=== PATIENT | female | born 1975 | race Caucasian/White ===

== ENCOUNTER 2016-04-07 17:57 | Emergency (ER) | payer OTHER ==
[~2016-04-07] VITALS: Ht 172.7 cm; Wt 106.8 kg
[~2016-04-07 17:57] MED LIST: BIRTH CONTROL; LAMO200T PO; METF1000 PO; NPR500T PO; PREG150C PO; VENL150C4 PO; [UNRECOGNIZED DRUG - CODE] PO
[2016-04-07 18:31] VITALS: BP 121/80; PULSE 68; RESP 18; O2SAT 97
[2016-04-07 19:36] LABS: BASOPHILS % (AUTO) 0.5 % (0-3); EOSINOPHILS % (AUTO) 2.3 % (0-5); MONOCYTES % (AUTO) 8.4 % (4-12); Mean Corpuscular Hemoglobin 29.1 pg (27.0-35.0); NEUTROPHILS % (AUTO) 48.8 % (40-74); Platelet Count 309 bil/L (150-400)
[2016-04-07 21:11] LABS: APPEARANCE,URINE HAZY (CLEAR,HAZY); COLOR,URINE YELLOW (YELLOW)
[2016-04-07 21:12] LABS: OCCULT BLOOD,URINE NEGATIVE (NEGATIVE); UROBILINOGEN,URINE NORMAL (NORMAL)
--- NOTE | 2016-04-07 21:15 | ED.REPORT ---
HPI-Abd Pain F 40 and Over Date of Service Apr 07, 2016 ED Provider: Kameron Sargent MD Patient is a 40 year old female with history of PCOS, diabetes mellitus, fibromyalgia, and hypothyroidism who presents to the ED with lower abdominal pain for the past 2 days. Patient states that the pain began in her RLQ and felt similar to what she experiences due to her PCOS. However the pain then spread to her LLQ as well, with suprapubic pain that radiated to her back. Patient reports severe cramping, which makes it difficult for her to walk or find a comfortable position. The patient has an IUD that was placed 5 months ago. She denies any abnormal vaginal bleeding or discharge. Patient admits to nausea but denies vomiting. She reports increasingly soft stools for the past few days. She denies fever or chills. Nursing Notes Stated Complaint: ABDOMINAL PAIN Chief Complaint: Female Abdominal Pain Nursing Notes Reviewed: Yes Allergies: Coded Allergies: meperidine (Verified Allergy, Severe, RASH, 03/18/12) morphine (Verified Allergy, Severe, ITCH,RASH, 03/18/12) fentanyl (Verified Allergy, Mild, itching, 03/18/12) hydromorphone (Verified Allergy, Unknown, 04/07/16) lactose (Verified Adverse Reaction, Mild, UNSPECIFIED, 03/18/12) Scheduled Aripiprazole-Expunged Drug, Do Not Renew! (Aripiprazole-Expunged Drug, Do Not Renew!) 10 Mg Tablet 10 MG PO DAILY Doxycycline Monohyd (Doxycycline Monohyd) 100 Mg Tablet 100 MG PO BID Lamotrigine-Expunged Drug, Do Not Renew! (Lamictal-Expunged Drug, Do Not Renew! ) 200 Mg Tablet 400 MG PO DAILY Metformin-Expunged Drug, Do Not Renew! (Metformin-Expunged Drug, Do Not Renew!) 1,000 Mg Tablet 500 MG PO AM Metronidazole (Flagyl) 500 Mg Tablet 500 MG PO Q8H Pregabalin-Expunged Drug, Do Not Renew! (Lyrica-Expunged Drug, Do Not Renew!) 150 Mg Capsule 225 MG PO BID Venlafaxine-Expunged Drug, Do Not Renew! (Effexor XR-Expunged Drug, Do Not Renew !) 150 Mg Cap.er.24h 300 MG PO DAILY Scheduled PRN Naproxen (Naproxen) 500 Mg Tab 500 MG PO BID PRN PRN For Pain Naproxen (Naprosyn) 500 Mg Tablet 500 MG PO BID PRN PRN For Pain Miscellaneous Medications ([ Control]) General Time Seen by MD: 21:15 Chief Complaint Abdominal pain Hx Obtained From: Patient Arrived By: Walk-in Sudden in Onset?: No Onset Occurred: 2 days ago Location: : RLQ: Suprapubic Quality: Painful Severity: Current: Severe Severity: Maximum: Severe Recent Healthcare: No recent doctor visit, No recent hospitalization Similar Sx Previous: No Past Medical History Past Medical History PCOS DM2 Hypothyroid Depression Anxiety Fibromyalgia IBS Past Surgical History Reports: Cholecystectomy Reports: Tubal ligation Family History Noncontributory Smoking History Never Smoker Social History Alcohol Use: "Social" Drug Use: THC Other Social History: Good social support, Local resident Occupation single , lives with people Ambulatory Status Independent Review of Systems Constitutional: Denies: Chills, Fever GI: Reports: Abdominal pain, Nausea, Denies: Diarrhea (loose stools), Vomiting Female: Denies: Vaginal bleeding - abnl, Vaginal discharge Complete sys rev & neg: except as marked. Physical Exam Vital Signs Vital Signs (First) Date Time Temp Pulse Resp B/P Pulse Ox O2 Delivery O2 Flow Rate FiO2 04/07/16 18:31 36.4 68 18 121/80 97 04/08/16 01:24 Room Air Initial VS: Reviewed Head / Eyes: Atraumatic, Normocephalic, PERRL ENT: Conjunctiva normal, No scleral icterus Neck: Supple, Full range of motion Extremities: Vascular intact, Neuro intact Skin: Warm, Dry, No cyanosis Neurologic: Alert, Oriented, Nonfocal Psychiatric: Mood/affect normal, Behavior normal, Normal thought content General/Constitutional: Awake, Alert, No acute distress Appearance / Presentation: Positive: Obese Respiratory / Chest: Breath sounds NL, Breath sounds = bilat, No respiratory distress, No rales, No rhonchi, No wheezing Cardiovascular: Heart rate NL, Regular rhythm, No murmurs Abdomen: Soft Tenderness/Guarding/Rebound: Positive: Tender RLQ... (quite tender), Tender suprapubic Back: Painless range of motion Female Genitourinary: Foster Parent present (Jenny DUDLEY) Vaginal Bleeding / Discharge: Positive: Discharge thick (mucopurulent) Pelvic Exam: Positive: Cervical motion tend..., IUD present (removed with ring forcepts) Interpretation & Diagnostics Lab Results Interpretation Result Diagram: 04/07/165 04/07/161854 Test 04/07/16 18:55 04/07/16 20:15 04/08/16 01:08 White Blood Count 12.1th/mm3 (3.8-10.1) Red Blood Count 4.99mil/mm3 (3.90-5.20) Hemoglobin 14.5g/dL (12.0-15.6) Hematocrit 40.9% (35.0-46.0) Mean Corpuscular Volume 82.0fL (81-100) Mean Corpuscular Hemoglobin 29.1pg (27.0-35.0) Mean Corpuscular Hemoglobin Concent 35.5% (32.0-37.0) Red Cell Distribution Width 13.3% (12.3-15.4) Platelet Count 309bil/L (150-400) Neutrophils (%) (Auto) 48.8% (40-74) Lymphocytes (%) (Auto) 39.8% (14-46) Monocytes (%) (Auto) 8.4% (4-12) Eosinophils (%) (Auto) 2.3% (0-5) Basophils (%) (Auto) 0.5% (0-3) Sodium Level 132mEq/L (134-144) Potassium Level 4.1mEq/L (3.5-5.2) Chloride Level 96mEq/L (97-108) Carbon Dioxide Level 22mmol/L (18-29) Blood Urea Nitrogen 9mg/dL (6-24) Creatinine 0.57mg/dL (0.57-1.00) Estimat Glomerular Filtration Rate 168mL/min (>59) Glucose Level 322mg/dL (60-99) Calcium Level 9.7mg/dL (8.5-10.1) Total Bilirubin 0.4mg/dL (0.0-1.2) Aspartate Amino Transf (AST/SGOT) 28U/L (0-50) Alanine Aminotransferase (ALT/SGPT) 44U/L (0-32) Alkaline Phosphatase 60U/L (25-150) Total Protein 7.5g/dL (6.4-8.4) Albumin 3.7g/dL (3.4-5.0) Lipase 132U/L (13-60) Urine Color Yellow (YELLOW) Urine Appearance Hazy (CLEAR,HAZY) Urine pH 6.0 (5.0-8.0) Urine Specific [place] 1.015 (1.003-1.035) Urine Protein Negativemg/dL (NEG,TRACE) Urine Glucose (UA) 1000mg/dL (NEGATIVE) Urine Ketones Negativemg/dL (NEGATIVE) Urine Occult Blood Negative (NEGATIVE) Urine Nitrite Negative (NEGATIVE) Urine Bilirubin Negative (NEGATIVE) Urine Urobilinogen Normalmg/dL (NORMAL) Urine Leukocyte Esterase Negative (NEGATIVE) Urine RBC 0-2/hpf (0-2) Urine WBC 0-5/hpf (0-5) Urine Epithelial Cells None/hpf (NONE-MOD) Urine Crystals None seen (NONE SEEN) Urine Bacteria Few/hpf (NONE-FEW) Urine Hyaline Casts None/lpf (NONE) Urine Granular Casts None seen (NONE SEEN) Urine Waxy Casts None seen (NONE SEEN) Urine Red Blood Cell Casts None seen (NONE SEEN) Urine White Blood Cell Casts None seen (NONE SEEN) Urine Mucus Present (None Seen) Urine Trichomonas None seen (NONE SEEN) Urine Yeast None (NONE SEEN) Urinalysis Comment None Urine Culture Reflexed Not indicated CT Abd / Pelvis Interpretation CONCLUSION: Follicular ovarian cysts, larger on the left measuring 2.3CM, not well assessed by CT scan. Incidental IUD. Hepatic lesion is not fully evaluated, most characteristic of a small hemangioma. No definite acute abnormalities. Normal Appendix. Radiologist: Tameka Taylor MD 04/07/2016 - 11:37:15 PM PST Study type: Abdominal CT no contrast Interpretation / Wet Read by: Interpret - Radiologist Re-Eval/Medical Decision Med Decision/Clinical Course 40-year-old presents with pelvic pain radiating down to her rectum and vagina. She has an exquisitely tender cervix and mucopurulent discharge. No other apparent explanation found, including on a negative CT scan. She has a mildly increased lipase of uncertain etiology. She has no epigastric pain and no vomiting. IUD was removed. Cultures are pending. Begun with Rocephin and doxycycline and Flagyl to follow. Naprosyn as needed for pain additionally. Follow-up with PCP. Source of Hx: Old records Re-Evaluation/Progress : Time of Eval: 00:50 Patient Status: Condition improved Re-Evaluation/Progress Note: Rechecked the patient to discuss the results of her labs and CT scan. No acute problem found on the CT scan. This means that the patient will need to have a pelvic exam. Pelvic exam preformed and IUD was removed. She will be treated for a pelvic infection. Patient understands and agrees with the plan to be discharged home. Discharge instructions and follow-up discussed. All questions were addressed. Return to the ED warnings given. Counseled Regarding: Diagnosis, Lab results, Need for follow-up, When/why to return to ED Discharge & Departure Primary Impression: Endometritis Additional Impression: Serum lipase elevation Disposition: Home Discharge Condition All VS Reviewed: Yes Condition: Stable Patient Instructions: Endometritis (ED) Additional Instructions: Doxycycline twice daily for ten days. Flagyl three times daily for ten days. Follow up with your doctor in the office. He will need an alternative method of control. An alternative method of hormone administration is advised. Referrals: [facility] (PCP) Scribe Attestation Portions of this note were transcribed by Kelsey Washington. I, Dr. Sargent personally performed the history, physical exam and medical decision-making; I reviewed and confirmed the accuracy of the information in the transcribed note. Signed by: Ross Huynh, 04/07/2016 0107 copies to: [facility] Kameron Sargent MD Apr 07, 2016 21:15 Kelsey Washington Apr 07, 2016 22:25
[2016-04-08] MEDS ORDERED: cefTRIAXone Inj 2 GM in IV Premix 1 EACH IV ONE (00:55)
[2016-04-08] MEDS ORDERED: NAPR500T PO (01:01)
[2016-04-08] MEDS ORDERED: METR500T PO (01:01)
[2016-04-08] MEDS ORDERED: DOXY-232 PO (01:01)
[2016-04-08 01:24] VITALS: BP 125/68; PULSE 79; RESP 16; O2SAT 96
--- NOTE | 2016-04-08 09:24 | DRSVH ---
PROCEDURE: CT ABDOMEN AND PELVIS WITH CONTRAST ([id number]) INDICATIONS: rlq pain TECHNIQUE: After the administration of intravenous contrast, 5 mm thick sections acquired from the diaphragm to the symphysis. 5 mm coronal and sagittal reformats were acquired. For radiation dose reduction, the following was used: automated exposure control, adjustment of mA and/or kV according to patient siz e. COMPARISON: [facility], CT, ABD/PELVIS W/CON (PNL), 08/24/2006, 22:59. FINDINGS: Image quality: Excellent. ABDOMEN: Lung bases: Right basilar lung atelectasis is noted. Heart size is normal. Solid organs: Liver and spleen are normal in size. Hemangioma in the posterior-inferior subsegment o f the right lobe liver (segment 6) is stable compared to prior examination. Gallbladder is surgically absent. Biliary system is non dilated. Pancreas enhances normally. No adrenal nodules. Kidneys d emonstrate normal size and enhancement, without hydronephrosis. Peritoneum and bowel: Bowel loops demonstrate normal wall thickness and caliber. No free fluid or a ir. The appendix is normal. Nodes and vessels: No retroperitoneal or mesenteric adenopathy by size criteria. Aorta and inferior vena cava are normal in size. Miscellaneous: No ventral hernias. PELVIS: Genitourinary: Bladder wall thickness is normal. 2.4 cm left adnexal cyst is noted. 1.3 cm right adn exal cyst is noted. Presence of intrauterine device noted. Miscellaneous: No inguinal hernias or adenopathy. Bones: No suspicious bony lesions. No vertebral body compression fractures. IMPRESSION: 1. Small hepatic hemangioma stable compared to 08/24/2006. 2. 2.3 cm left adnexal cyst. 3. The appendix is normal. 4. No free fluid or free air. 5. No dilated loops of bowel. Dictated by: Polly Lance MD, PhD on 04/08/2016 at 9:22 Approved by: Polly Lance MD, PhD on 04/08/2016 at 9:22
== END 2016-04-08 01:24 | disposition home or self-care (01) ==
LOC: SED 17:57
DX: N71.9 Inflammatory disease of uterus, unspecified (principal); R74.8 Abnormal levels of other serum enzymes; E28.2 Polycystic ovarian syndrome; E11.9 Type 2 diabetes mellitus without complications; M79.7 Fibromyalgia; E03.9 Hypothyroidism, unspecified; Z30.432 Encounter for removal of intrauterine contraceptive device; Z87.42 Personal history of other diseases of the female genital tract; Z97.5 Presence of (intrauterine) contraceptive device; Z98.51 Tubal ligation status; Z79.84 Long term (current) use of oral hypoglycemic drugs; Z88.5 Allergy status to narcotic agent
CPT/HCPCS: 36415; 74177; 80053; 81000; 81025; 83690; 85025; 87070; 87147; 87210; 87491; 87591; 96365; 96375; 99285; J0696; Q9967

== ENCOUNTER 2016-11-04 10:08 | Day surgery (SDC) | payer OTHER ==
--- NOTE | 2016-10-28 16:51 | PCM.ANEPRE ---
Anesthesia Pre-Op Review Reason for Review: diabetes out of control Additional Comments contacted re: 40yo female IDDM with evidence poor glycemic control (A1C ~11 2016). Will repeat A1C and triage for medical clearance to address periop glycemic control pending A1C>8 per recently circulated guidelines. Edd Rogel DO Oct 28, 2016 16:51
[2016-11-04] VITALS (10 sets, daily range): BP systolic 96–115; BP diastolic 49–74; PULSE 65–83; RESP 13–19; O2SAT 93–96
[~2016-11-04] VITALS: Ht 172.7 cm; Wt 95.0 kg
[~2016-11-04 10:08] MED LIST changes: +ALBU8.5H2 INHALATION; -BIRTH CONTROL; +CYCL10TA9 PO; +FLUT16SP NS; +IBUP-1827 PO; +INSU100V7 SUBQ; -LAMO200T PO; +Lactated Ringer's 1,000 ML IV SCH; -METF1000 PO; -NPR500T PO; +ROB500 PO; -VENL150C4 PO; -[UNRECOGNIZED DRUG - CODE] PO; +synthroid
[2016-11-04] MEDS ORDERED: Dexamethasone 4 mg/mL Inj ONE (10:09)
[2016-11-04] MEDS ORDERED: fentaNYL-PF 50 mCg/mL 2 mL Inj ONE (10:09)
[2016-11-04] MEDS ORDERED: Ondansetron 2 mg/mL 2 mL Inj ONE (10:09)
[2016-11-04] MEDS ORDERED: Propofol 10,000 mCg/mL 20 mL Inj ONE (10:09)
[2016-11-04] MEDS ORDERED: Ketamine 10 mg/mL 20 mL Inj ONE (10:09)
[2016-11-04] MEDS ORDERED: Lactated Ringer's 1,000 ML IV ONE (10:42)
--- NOTE | 2016-11-04 11:22 | PCM.HPANE ---
Patient Data Surgeon Admitting Provider: Attending Provider:Sudeep Nagel DO Primary Care Physician:Bel Other Provider:Matias Bedolla Anesthesia Reason for Visit Left Wrist Ganglion Cyst Ht/WT & BMI Height (Feet): 5 Height (Inches): 8.00 Weight (Kilograms): 94.980 Body Mass Index 31.00 Allergies Coded Allergies: meperidine (Verified Allergy, Severe, RASH, 10/28/16) tolerates med if taken with benadryl morphine (Verified Allergy, Severe, ITCH,RASH, 10/28/16) tolerates med if taken with benadryl lactose (Verified Adverse Reaction, Mild, UNSPECIFIED, 03/18/12) Past Anesthesia History Anesthesia History: Denies:: Abnormal Airway, Anesthesia Reactions, Difficult Intubation, Fam Anesthesia Reaction Diabetes History Hx Diabetes?: Yes Type of Diabetes: Type II Glycemic Control: Insulin Dependent MRSA MRSA: No Medications Hypertension Medication: No Home Meds Incl Beta Maryam: No Reported Medications [synthroid] No Conflict CheckUnknown Dose DAILY 10/29/16 Albuterol HFA (Proair HFA)8.5 Gm Hfa.aer.ad2 Puffs INHALATION Q4H PRN For Shortness of Breath #1 INHALER 10/29/16 Methocarbamol 500 Mg Ajnehl786-3,000 Mg PO BID PRN For Pain 10/29/16 Pregabalin (Lyrica)150 Mg Dbjvtvt854 Mg PO BID 30 Days Ref 0 10/29/16 Insulin Glargine (Lantus U100 Insulin Vial)100 Unit/Ml Vial20 Unit SUBQ QPM #1 VIAL Ref 0 10/29/16 Insulin Glargine (Lantus U100 Insulin Vial)100 Unit/Ml Vial30 Unit SUBQ QAM #1 VIAL Ref 0 10/29/16 Ibuprofen 600 Mg Ouolul742 Mg PO QID PRN For Pain Ref 0 10/29/16 Fluticasone Propionate (Fluticasone Propionate Nasal)16 Gm [place].susp2 [place] NS BID #16 GM Ref 0 10/29/16 Cyclobenzaprine 10 Mg Tablet5-20 Mg PO TID PRN Spasm 10/29/16 Discontinued Reported Medications [ Control] No Conflict Check 11/18/12 Metformin-Expunged Drug, Do Not Renew! 1,000 Mg Ypyery847 Mg PO AM 11/18/12 Pregabalin-Expunged Drug, Do Not Renew! (Lyrica-Expunged Drug, Do Not Renew!) 150 Mg Orsmzdb329 Mg PO BID 11/18/12 Venlafaxine-Expunged Drug, Do Not Renew! (Effexor XR-Expunged Drug, Do Not Renew !)150 Mg Cap.er.07x096 Mg PO DAILY 11/18/12 Lamotrigine-Expunged Drug, Do Not Renew! (Lamictal-Expunged Drug, Do Not Renew!) 200 Mg Sziunz367 Mg PO DAILY 11/18/12 Aripiprazole-Expunged Drug, Do Not Renew! 10 Mg Dgcsar12 Mg PO DAILY 11/18/12 Discontinued Scripts Naproxen (Naprosyn)500 Mg Kkpahv195 Mg PO BID PRN For Pain #20 TABLET Prov:Kameron Sargent MD 04/08/16 Metronidazole (Flagyl)500 Mg Axkger870 Mg PO Q8H #30 TABLET Prov:Kameron Sargent MD 04/08/16 Doxycycline Monohyd 100 Mg Craovg872 Mg PO BID #20 TABLET Ref 0 Prov:Kameron Sargent MD 04/08/16 Naproxen 500 Mg Bzz636 Mg PO BID PRN For Pain #20 TABLET Prov:Panda Lebron DO 03/15/16 History History of ENT Problems?: No HEENT History: Positive for:: Sinus Problem (chronic sinus infections- ) Denies:: Abnormal Airway Cataracts Difficult Intubation Dysphagia Glaucoma Hearing Problem TMJ Denture Type: None Teeth Condition: Within Normal Limits Hx of Heart Problems?: No Cardiovascular History: Denies:: AICD Atrial Fibrillation Cardiac Surgery Congestive Heart Failure Coronary Artery Disease Heart Murmur Hypertension Irregular Heartbeat Pacemaker Peripheral Vascular Hx of Respiratory Problem?: No Respiratory History: Denies:: Asthma COPD Emphysema Oxygen Administration Pneumonia Tuberculosis Use of C-PAP Machine (sleep study negative- no CPAP recommended) Other Resp Pertinent History: URI 3 weeks ago with residual cough, Clear sputum Hx Neurologic Problems?: No Neurological History: Denies:: Alzheimer's Disease CVA Dementia Dizziness Headaches Multiple Sclerosis Parkinson's Disease Seizures Hx of GI Problems?: Yes Hx of Problems?: No Genitourinary History: Denies:: Kidney Stones Urinary Tract Infection Female Hx: Denies:: Currently (Tubal ligation 1997) Endometriosis Pelvic Inflammatory Problems with Breasts? Skin History: Denies:: History Skin Disorders? Pressure Ulcers Hx Musculoskeletal Problems?: Yes Musculoskeletal History: Positive for:: Back Injury (back pain with injections ) Fibromyalgia Osteoarthritis Rheumatoid Arthritis (sees Dr Elliott ) Denies:: Joint Replacement Hx of Psycho/Social Problems?: Yes Psycho Social History: Positive for:: Anxiety Bipolar Disorder Hx Depression Hx Surgeries?: Yes (malena, tubal ligation) Hx Any Other Health Problems?: Yes Other History: Positive for:: Hospitalization Thyroid Disease Denies:: Cancer History Blood Transfusions: Positive for:: Accept Blood Products? Denies:: Blood Transfuse Reaction Blood Transfusions Hx Diabetes: Yes Hx Alcohol Use: YesAlcoholic Drinks Per Day: holidays onlyHx Substance Use: Yes (marijuana daily) Smoking Status: Never Smoker Have You Smoked inLast 12 mo: No Stop/Bang S-Snoring: Do You Snore Loudly: No T-Tired: feel tired, fatigued: Yes O-Obsered: Observed not breath: No P-Blood Pressure: treated: No B- Body Mass Index > 35 kg/m2: No A- Age over 50: No N- Neck Large Circumference: No G- Gender Male: No JENIFFER Total Score: 1 Risk Assessment Category Category 1A: Patient has history of documented sleep apnea, and HAS NOT received any narcotic, sedative or anesthesia administration during this stay. Category 1B: Patient has history of documented sleep apnea, and HAS received any narcotic , sedative or anesthesia administration during this stay Category 2: Patient has SUSPECTED Obstructive Sleep Apnea, and HAS received any narcotic , sedative or anesthesia administration during this stay. Category 3: Patient has SUSPECTED Obstructive Sleep Apnea and HAS NOT received narcotic, sedative or anesthesia administration during this stay. Category 4: Outpatient in Procedural Areas with known sleep apnea or who screen positive for High Risk via the STOP/BANG questionnaire. Exam Exam Vital Signs Vital Signs Date Time Temp Pulse Resp B/P Pulse Ox O2 Delivery O2 Flow Rate FiO2 11/04/16 10:36 36.6 74 16 115/74 96 Room Air General Appearance: Alert, Oriented X3, Cooperative, No Acute Distress HEENT/AIRWAY: MP 1 Lungs: Clear to Auscultation Heart: Exam Unremarkable Meds/Labs/Diagnostics Admission Meds Current Medications Lactated Ringer's (Lr) 1,000 ml @ ud STK-MED ONCE IV Last administered on 11/04t 10:42; Start 11/04/16 at 10:42; Stop 11/04/16 at 10:43; Status DC Plan Impression Patient chart reviewed, patient interviewed and anesthestic plan with risks, benefits, and alternatives discussed, and informed consent obtained. NPO per Anesth. Guidelines: Yes ASA Physical Status: ASA2 Mod Systemic Disease Anesthetic Plan: GA Bene/Risks/Altern/Consents: Yes HP Complete Prior to Induction: Yes Garett Wright MD Nov 04, 2016 11:22
[2016-11-04] MEDS ORDERED: Lidocaine 1%-Epi 1:100,000 20 mL Inj INFILTRATE ONE (11:52)
[2016-11-04] MEDS ORDERED: fentaNYL-PF 50 mCg/mL 2 mL Inj IVPUSH PRN (12:15)
[2016-11-04] MEDS ORDERED: HYDROmorphone 1 mg/mL Inj IVPUSH PRN (12:15)
[2016-11-04] MEDS ORDERED: Lactated Ringer's 500 ML IV PRN (12:15)
[2016-11-04] MEDS ORDERED: Lactated Ringer's 1,000 ML IV SCH (12:15)
[2016-11-04] MEDS ORDERED: Ondansetron 2 mg/mL 2 mL Inj IVPUSH PRN (12:15)
[2016-11-04] MEDS ORDERED: Dexamethasone 4 mg/mL Inj IVPUSH PRN (12:15)
[2016-11-04] MEDS ORDERED: MetoCLOpramide 5 mg/mL 2 mL Inj IVPUSH PRN (12:15)
[2016-11-04] MEDS ORDERED: Phenylephrine 10,000 mCg/mL Inj IVPUSH PRN (12:15)
[2016-11-04] MEDS ORDERED: EPHEDrine Sulfate 50 mg/mL Inj IVPUSH PRN (12:15)
[2016-11-04] MEDS ORDERED: HYDROcodone-APAP 5-325 mg Tablet PO PRN (12:40)
--- NOTE | 2016-11-04 17:53 | PCM.ANEP1 ---
Post Anesthesia PACU Phase 1 Assessment Vital Signs Vital Signs Date Time Temp Pulse Resp B/P Pulse Ox O2 Delivery O2 Flow Rate FiO2 11/04/16 13:24 65 16 114/68 96 Room Air 11/04/16 13:19 67 19 112/67 94 Room Air 11/04/16 13:16 36.1 66 14 111/69 94 Room Air 11/04/16 13:00 69 13 105/59 93 Room Air 11/04/16 12:45 36.3 74 14 100/58 96 Simple Mask 8 11/04/16 12:40 83 17 96/49 94 Simple Mask 8 11/04/16 12:35 83 15 101/55 94 Simple Mask 8 11/04/16 12:30 82 15 105/58 94 Simple Mask 8 11/04/16 12:27 36.2 104/59 11/04/16 10:36 36.6 74 16 115/74 96 Room Air Anesthetic Administered: GA Level of Alertness: Awake, talking Pain: Yes Nausea or Vomiting: No CV Function & Hydration Stable: Yes Airway Device: None Oxygen Delivery: Room Air Lungs: Clear to Auscultation PACU Phase 2 Assessment Complications: No Follow up Care: N/A Patient Instructions Provided: N/A Garett Wright MD Nov 04, 2016 17:53
--- NOTE | 2016-11-05 08:41 | OP ---
[address] [address] OPERATIVE REPORT PATIENT: IVIS BEASLEY : 1975 MR#: [id number] ADMIT: 11/04/2016 JOB ID: [id number] DATE OF SURGERY: 11/04/2016 PREOPERATIVE DIAGNOSIS(ES): Left volar wrist ganglion. POSTOPERATIVE DIAGNOSIS(ES): Left volar wrist ganglion. PROCEDURE: Excision of left volar wrist ganglion. SURGEON: Sudeep Nagel D.O. ANESTHESIA: General. HISTORY: The patient is a pleasant 40-year-old female with a longstanding history of left volar wrist ganglion. I did see her last year with similar findings. She decided at that time to treat this conservatively with observation. Her symptoms did not improve and the cyst gradually enlarged starting to become extremely bothersome to her. I thus gave her the option for an excision which she opted to proceed. She understood the risks include, but not limited to, neurovascular injury, tendon injury, infection, recurrent stiffness, persistent pain, all of which may require further intervention. The patient had all questions answered. Consent was signed and placed in the chart. PROCEDURE IN DETAIL: The patient was brought to the operative suite and placed supine on the operative table. Surgical time-out was performed. Everyone in the room was in agreement. After appropriate anesthesia was obtained, a left upper arm tourniquet was applied and the left upper extremity was prepped and draped in a sterile fashion. Left upper extremity was then exsanguinated and tourniquet inflated to 250 mmHg. A longitudinal incision was made directly overlying the ganglion. Dissection was carried down to the ganglion and it was freed up from the surrounding soft tissues as well as the radial artery. This was dissected down to its stalk and the ganglion was removed in its entirety. Copious irrigation was then performed followed by closure of the skin with 4-0 nylon in a simple interrupted fashion. The patient was then placed in a bulky dressing with a volar splint incorporated. ESTIMATED BLOOD LOSS: Less than 1 cc. COMPLICATIONS: None. DISPOSITION: The patient tolerated the procedure well. Anesthesia was reversed. The patient was transferred back to recovery. POSTOPERATIVE PLAN: The patient will followup in my office in two weeks. We will remove the patient's splint as well as sutures at that time and have her start working on range of motion and scar mobilization.
== END 2016-11-04 23:59 | disposition home or self-care (01) ==
LOC: SAS 10:08
PROVIDERS: ATTEND Orthopaedic Surgery
DX: M67.432 Ganglion, left wrist (principal); M65.4 Radial styloid tenosynovitis [de Quervain]; G56.02 Carpal tunnel syndrome, left upper limb; E11.9 Type 2 diabetes mellitus without complications; E03.9 Hypothyroidism, unspecified; F41.8 Other specified anxiety disorders; M79.7 Fibromyalgia; Z79.4 Long term (current) use of insulin
CPT/HCPCS: 25111; J1100; J1200; J1885; J2250; J2405; J2704; J3010; J7120